=== PATIENT | female | born 1940 | race Caucasian/White ===

== ENCOUNTER 2018-02-13 06:14 | Day surgery (SDC) | payer OTHER ==
[2018-02-13] MEDS ORDERED: PROPOFOL 40 ML (08:49)
== END 2018-02-13 11:12 | disposition home or self-care (01) ==
LOC: GIL 06:14
DX: R19.4 Change in bowel habit (principal); K64.8 Other hemorrhoids; D12.3 Benign neoplasm of transverse colon; E11.9 Type 2 diabetes mellitus without complications; I10 Essential (primary) hypertension; G30.9 Alzheimer's disease, unspecified; F02.80 Dementia in other diseases classified elsewhere, unspecified severity, without behavioral disturbance, psychotic disturbance, mood disturbance, and anxiety
CPT/HCPCS: 45380; 88305